=== PATIENT | male | born 1965 ===

== ENCOUNTER 2018-01-03 23:25 | Emergency (ER) | payer MEDICARE ==
[2018-01-03 23:36] VITALS: RESP 18; TEMP 98.2; O2SAT 96
--- NOTE | 2018-01-04 02:07 | ED PDOC ---
HPI: Chest Pain Time Seen by Provider: 01/04/18 00:30 Chief Complaint (Nursing): Chest Pain Chief Complaint (Provider): Palpitations, chest pain, and headache History Per: Patient History/Exam Limitations: no limitations Onset/Duration Of Symptoms: Hrs (x2) Current Symptoms Are (Timing): Better Additional Complaint(s): Isreal Alvarado is a 52 year old male, with a past medical history of HIV, last viral load undetected with CD4 count of 900, who was brought to the emergency department by EMS complaining of palpitations, chest pain and headache onset for x2 hours. Patient states he took the train to [facility] but on return train got cancelled along with subsequent trains. Patient began having a strong sense of anxiety, palpitations and developed a headache. Patient was concerned he may have developed a "heart attack." EMS reported patient was diaphoretic and shaky when they picked him up on station. On arrival patient reports feeling well and is requesting to be discharged. Patient states symptoms have completely resolved. He denies any other medical complaints. PMD: Bill Slade Past Medical History Reviewed: Historical Data, Nursing Documentation, Vital Signs Vital Signs: Last Vital Signs Temp 98.2 F 01/03/18 23:33 Pulse 91 H 01/04/18 00:16 Resp 18 01/03/18 23:33 BP 131/82 01/04/18 00:16 Pulse Ox 96 01/03/18 23:33 - Medical History PMH: Depression, HIV - Surgical History Surgical History: No Surg Hx - Family History Family History: States: Unknown Family Hx - Social History Current smoker - smoking cessation education provided: No Alcohol: None Drugs: Denies - Allergies Allergies/Adverse Reactions: Allergies Allergy/AdvReac Type Severity Reaction Status Date / Time moxifloxacin [From Avelox] Allergy REDNESS Verified 01/03/18 23:36 Review of Systems ROS Statement: Except As Marked, All Systems Reviewed And Found Negative Cardiovascular: Positive for: Chest Pain, Palpitations Neurological: Positive for: Headache Psych: Positive for: Anxiety Physical Exam - Reviewed Nursing Documentation Reviewed: Yes Vital Signs Reviewed: Yes - Physical Exam Appears: Positive for: No Acute Distress Head Exam: Positive for: ATRAUMATIC, NORMAL INSPECTION, NORMOCEPHALIC Skin: Positive for: Normal Color, Warm, Dry Eye Exam: Positive for: Normal appearance, EOMI, PERRL Neck: Positive for: Painless ROM Cardiovascular/Chest: Positive for: Regular Rate, Rhythm. Negative for: Murmur Respiratory: Positive for: Normal Breath Sounds. Negative for: Respiratory Distress Gastrointestinal/Abdominal: Positive for: Normal Exam, Soft. Negative for: Tenderness, Guarding, Rebound Back: Positive for: Normal Inspection. Negative for: L CVA Tenderness, R CVA Tenderness, Vertebral Tenderness Extremity: Positive for: Normal ROM (upper and lower extremities). Negative for: Calf Tenderness, Deformity, Swelling Neurologic/Psych: Positive for: Alert, Oriented, Gait (steady) - ECG O2 Sat by Pulse Oximetry: 96 (RA) Pulse Ox Interpretation: Normal Medical Decision Making Medical Decision Making: Time: 00:30 Initial Impression: 52 y/o male with acute panic attack resolved. Initial Plan: --EKG --CMP --Troponin I --CBC w/ differential --Reevaluation EKG: Normal sinus @ 87bpm no ST abnormalities. Patient is medically stable for discharge home. 01:20 Upon provider reevaluation patient is feeling better, is medically stable, and requires no further treatment in the ED at this time. Counseling was provided and all questions were answered regarding diagnosis. There is agreement to discharge plan. Return if symptoms persist or worsen. Scribe Attestation: Documented by Bob Chadwick, acting as a scribe for Aravind Mooney MD. Provider Scribe Attestation: All medical record entries made by the Scribe were at my direction and personally dictated by me. I have reviewed the chart and agree that the record accurately reflects my personal performance of the history, physical exam, medical decision making, and the department course for this patient. I have also personally directed, reviewed, and agree with the discharge instructions and disposition. Disposition - Clinical Impression Clinical Impression: Panic attack as reaction to stress - Disposition Disposition: Routine/Home Disposition Time: 01:20 Condition: STABLE Instructions: Panic Disorder Forms: 2d2c (Pashto)
[2018-01-04 02:46] VITALS: BP 146/82; PULSE 89
--- NOTE | 2018-01-04 13:59 | CARD ---
APPROVED REPORT Date of service: 01/03/2018 EKG Measurement Heart [id number] <Conclusion> Normal sinus rhythm Normal ECG
== END 2018-01-04 01:42 | disposition home or self-care (01) ==
LOC: H.ER 23:25
DX: F43.0 Acute stress reaction (principal); F41.0 Panic disorder [episodic paroxysmal anxiety]; F32.9 Major depressive disorder, single episode, unspecified; B20 Human immunodeficiency virus [HIV] disease